=== PATIENT | male | born 1990 | race Caucasian/White ===

== ENCOUNTER 2017-10-17 20:37 | Emergency (ER) | payer OTHER ==
[2017-10-17 21:23] LABS: Hematocrit 50 % (42-52); Hemoglobin 17.2 g/dl (14.0-18.0); Mean Corpuscular HGB Conc 34 g/dl (31-36); Mean Corpuscular Hemoglobin 33 pg (27-31); Mean Corpuscular Volume 96 fL (80-94); Mean Platelet Volume 9 um3 (7.4-10.4); Red Blood Count 5.21 10^6/ul (4.0-5.4); Red Cell Distribution Width 13 % (10.5-15); White Blood Count 10.3 10^3/ul (3.5-10.8)
[2017-10-17 21:37] LABS: ALT 16 U/L (7-52); AST 14 U/L (13-39); Albumin 4.7 g/dL (3.2-5.2); Alkaline Phosphatase 56 U/L (34-104); Anion Gap 5 mmol/L (2-11); BUN/Creatinine Ratio 9.1 (8-20); Blood Urea Nitrogen 11 mg/dL (6-24); CO2 Carbon Dioxide 31 mmol/L (22-32); Chloride 101 mmol/L (101-111); EGFR African American 92.5 (>60); EGFR Non-African American 71.9 (>60); Globulin 2.8 g/dL (2-4); Glucose 110 mg/dL (70-100); Potassium 3.9 mmol/L (3.5-5.0); Sodium 137 mmol/L (133-145); Total Protein 7.5 g/dL (6.4-8.9)
[2017-10-17] MEDS ORDERED: Tetan/Diph/Pertus SYR(Tdap)* 0.5 ML SYR(BOOSTRIX) use SYR IM ONE (21:52)
[2017-10-17 21:59] LABS: Acetaminophen < 15 mcg/mL; Alcohol < 10 mg/dL (<10); Salicylate < 2.50 mg/dL (<30)
[2017-10-17] MEDS ORDERED: Iohexol 300* (CONTRAST) 10 ML SDV IV ONE (22:04)
[2017-10-17 22:13] LABS: TSH (Thyroid Stimulating Horm) 1.79 mcIU/mL (0.34-5.60)
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
[2017-10-18 02:03] LABS: Urine Bacteria Absent (Absent); Urine Bilirubin Negative (Negative); Urine Glucose Negative (Negative); Urine Nitrite Negative (Negative)
[2017-10-18 02:13] LABS: Benzodiazepine Urine Screen None Detected (None Detect)
--- NOTE | 2017-10-18 06:48 | ED ---
Nico Poole Tiffany, scribed for Tonio Hightower on 10/18/17 at 0646 . Progress - Consult/PCP Time Called: 02:23 Course/Dx - Course Course Of Treatment: Patient signed out to Dr. Fernando at shift change, awaiting mental health evaluation. - Diagnoses Provider Diagnoses: Depression, Suicidal ideation - Provider Notifications Reason For Transfer: No beds available. The documentation as recorded by the Nico hannah Tiffany accurately reflects the service I personally performed and the decisions made by Katja wise Emmanuel.
[2017-10-18 07:30] VITALS: BP 121/65
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
--- NOTE | 2017-10-18 12:54 | PN ---
ED Flex Patient Progress Note Date of Service: 10/17/17 Subjective: This is a 27 year-old M who is pending psych eval by Dr Pugh. Psych attempted to discharge after eval however Dr Hightower did not agree and wanted Dr Pugh to evaluate him himself. Patient is waiting for this evaluation upon my arrival. Pt offers no complaints at this time. Sleeping and eating fine. Objective: Vitals: Most recent vital signs documented below. General NAD, Alert and oriented x3. Heart: rrr at 53 bpm Lungs: CTA or with rales, rhonchi, wheezing Laboratory: Current laboratory results documented below. Assessment: suicidal ideation depression pending psych eval by Dr Pugh Plan: Pending psychiatric consultation by Dr Pugh. will follow up daily until disposition is determined Vital Signs Temp Pulse Resp BP Pulse Ox 97.7 F 53 16 121/65 99 10/18/17 07:29 10/18/17 07:29 10/18/17 07:29 10/18/17 07:29 10/18/17 07:29 Lab Results - Entire Visit 10/18/17 10/18/17 10/17/17 01:43 01:43 21:10 WBC 10.3 RBC 5.21 Hgb 17.2 Hct 50 MCV 96 H MCH 33 H MCHC 34 RDW 13 Plt Count 224 MPV 9 Neut % (Auto) 61.8 Lymph % (Auto) 29.2 Whitley % (Auto) 7.3 Eos % (Auto) 0.9 Baso % (Auto) 0.8 Absolute Neuts (auto) 6.4 Absolute Lymphs (auto) 3.0 Absolute Monos (auto) 0.8 Absolute Eos (auto) 0.1 Absolute Basos (auto) 0.1 Absolute Nucleated RBC 0.01 Nucleated RBC % 0.1 Sodium Potassium Chloride Carbon Dioxide Anion Gap BUN Creatinine Est GFR ( Amer) Est GFR (Non-Af Amer) BUN/Creatinine Ratio Glucose Calcium Total Bilirubin AST ALT Alkaline Phosphatase Total Protein Albumin Globulin Albumin/Globulin Ratio TSH Urine Color Yellow Urine Appearance Clear Urine pH 6.0 Ur Specific [place] 1.013 Urine Protein Negative Urine Ketones Trace H Urine Blood Negative Urine Nitrate Negative Urine Bilirubin Negative Urine Urobilinogen Positive H Ur Leukocyte Esterase Trace H Urine WBC (Auto) 1+(6-10/hpf) H Urine RBC (Auto) Trace(0-2/hpf) Ur Squamous Epith Cells Present H Urine Bacteria Absent Urine Glucose Negative Salicylates Urine Opiates Screen None detected Acetaminophen Ur Barbiturates Screen None detected Ur Phencyclidine Scrn None detected Ur Amphetamines Screen None detected U Benzodiazepines Scrn None detected Urine Cocaine Screen Presumptive positive H U Cannabinoids Screen Presumptive positive H Serum Alcohol 10/17/17 21:10 WBC RBC Hgb Hct MCV MCH MCHC RDW Plt Count MPV Neut % (Auto) Lymph % (Auto) Whitley % (Auto) Eos % (Auto) Baso % (Auto) Absolute Neuts (auto) Absolute Lymphs (auto) Absolute Monos (auto) Absolute Eos (auto) Absolute Basos (auto) Absolute Nucleated RBC Nucleated RBC % Sodium 137 Potassium 3.9 Chloride 101 Carbon Dioxide 31 Anion Gap 5 BUN 11 Creatinine 1.21 H Est GFR ( Amer) 92.5 Est GFR (Non-Af Amer) 71.9 BUN/Creatinine Ratio 9.1 Glucose 110 H Calcium 10.0 Total Bilirubin 0.80 AST 14 ALT 16 Alkaline Phosphatase 56 Total Protein 7.5 Albumin 4.7 Globulin 2.8 Albumin/Globulin Ratio 1.7 TSH 1.79 Urine Color Urine Appearance Urine pH Ur Specific [place] Urine Protein Urine Ketones Urine Blood Urine Nitrate Urine Bilirubin Urine Urobilinogen Ur Leukocyte Esterase Urine WBC (Auto) Urine RBC (Auto) Ur Squamous Epith Cells Urine Bacteria Urine Glucose Salicylates < 2.50 Urine Opiates Screen Acetaminophen < 15 Ur Barbiturates Screen Ur Phencyclidine Scrn Ur Amphetamines Screen U Benzodiazepines Scrn Urine Cocaine Screen U Cannabinoids Screen Serum Alcohol < 10
--- NOTE | 2017-10-18 14:03 | PN ---
Progress Note - Progress Note Date of Service: 10/18/17 Note: Patient seen and mother, Amanda López ([phone]), spoken to for collateral information. Patient is denying SI and would like to go to [facility] for emergency housing services. Please see dictated consultation report for full history.
--- NOTE | 2017-10-18 14:39 | CONSULT ---
Consult Consult: Mr. Mclain presented on a previous shift C/O SI. He was medically cleared and seen by Dr. Pugh who felt that he was appropriate for D/C although he was offered a voluntary admission which he declined. He was D/C'd in stable condition with a diagnosis of suicidal ideation.
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
== END 2017-10-18 14:32 ==
LOC: ED 20:37
DX: T14.8XXA Other injury of unspecified body region, initial encounter (principal); S42.032A Displaced fracture of lateral end of left clavicle, initial encounter for closed fracture; Y93.89 Activity, other specified; Y92.9 Unspecified place or not applicable; F12.20 Cannabis dependence, uncomplicated; F32.9 Major depressive disorder, single episode, unspecified; F17.210 Nicotine dependence, cigarettes, uncomplicated
CPT/HCPCS: 36415; 70450; 71250; 72125; 74176; 80053; 80307; 80320; 80329; 81003; 81015; 84443; 85025; 87086; 90471; 90715; 96374; 99284; G0480

== ENCOUNTER 2017-11-02 00:47 | Emergency (ER) | payer OTHER ==
[2017-11-02] MEDS ORDERED: NS 0.9% 1000 ML* 2,000 ML IV ONE (00:55)
[2017-11-02] MEDS ORDERED: LORazepam INJ* 2 MG/ML 1 ML VIAL IV PUSH ONE (01:04)
[2017-11-02 01:18] LABS: ABS Basophils 0.1 10^3/ul (0-0.2); ABS Eosinophils 0.1 10^3/ul (0-0.6); ABS Lymphocytes 3.3 10^3/ul (1.0-4.8); ABS Monocytes 0.7 10^3/ul (0-0.8); ABS Neutrophils 8.3 10^3/ul (1.5-7.7); ABS Nucleated RBC 0 10^3/ul; Eosinophil % 1.1 % (0-6); Hematocrit 46 % (42-52); Hemoglobin 15.3 g/dl (14.0-18.0); Lymphocyte % 26.3 % (25-47); Mean Corpuscular HGB Conc 34 g/dl (31-36); Mean Corpuscular Hemoglobin 33 pg (27-31); Mean Corpuscular Volume 97 fL (80-94); Mean Platelet Volume 9 um3 (7.4-10.4); Nucleated Red Blood Cells % 0; Platelet Count 198 10^3/ul (150-450); Red Blood Count 4.72 10^6/ul (4.0-5.4); Red Cell Distribution Width 13 % (10.5-15); White Blood Count 12.4 10^3/ul (3.5-10.8)
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
[2017-11-02 09:32] VITALS: BP 00/00
== END 2017-11-02 09:30 ==
LOC: ED 00:47
DX: F10.129 Alcohol abuse with intoxication, unspecified (principal); F17.210 Nicotine dependence, cigarettes, uncomplicated
CPT/HCPCS: 36415; 80053; 80320; 80329; 82553; 84443; 85025; 96374; 99282; G0480; J2060

== ENCOUNTER 2018-05-15 18:47 | Emergency (ER) | payer SELFPAY ==
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
[2018-05-15 20:33] VITALS: BP 128/74
== END 2018-05-15 20:31 | disposition home or self-care (01) ==
LOC: ED 18:47
DX: F43.0 Acute stress reaction (principal); F98.9 Unspecified behavioral and emotional disorders with onset usually occurring in childhood and adolescence; F10.129 Alcohol abuse with intoxication, unspecified; F17.200 Nicotine dependence, unspecified, uncomplicated
CPT/HCPCS: 99283

== ENCOUNTER → 2019-05-22 18:13 | Emergency (ER) | payer OTHER ==
[2019-05-22 18:25] VITALS: BP 108/59
--- NOTE | 2019-05-22 18:44 | ED ---
Altered Mental Status - HPI Summary HPI Summary: The patient is a 29 y/o M arriving by ambulance as 2208 to [facility] with a chief complaint of AMS today. Per EMS, the patient was found outside of a store unresponsive and slumped over with drool coming out of his mouth. When prompted by EMS, the patient threw a heavy swing and fell into the bushes. He was unable to answer president and date questions at the time. In the ED, the patient is responsive, awake, and denies SI or HI. He states he "told a freeman off at the store who told him he was on something." He reports feeling safe enough to go home. He is currently on probation. No PMHx. Light every day smoker, no EtOH, marijuana use. Lives in [facility]. - History Of Current Complaint Chief Complaint: EDAltMentalStatus Stated Complaint: 2208 PER EMS Time Seen by Provider: 05/22/19 18:16 Hx Obtained From: Patient, EMS Hx From Patient Unobtainable Due To: Other Onset/Duration: Resolved Timing: Lasting Hours Severity Initially: Severe Severity Currently: Mild Character: Agitation, Responsiveness Aggravating Factor(s): Unknown Alleviating Factor(s): Unknown - Allergies/Home Medications Allergies/Adverse Reactions: Allergies Allergy/AdvReac Type Severity Reaction Status Date / Time No Known Allergies Allergy Verified 01/18/15 20:22 PMH/Surg Hx/FS Hx/Imm Hx Endocrine/Hematology History: Denies: Hx Anticoagulant Therapy, Hx Blood Disorders, Hx Diabetes, Hx Thyroid Disease, Hx Anemia Sensory History: Denies: Hx Legally Blind, Hx Deafness Opthamlomology History: Denies: Hx Legally Blind Psychiatric History: Denies: Hx Eating Disorder - Surgical History Surgical History: None Surgery Procedure, Year, and Place: none - Immunization History Date of Tetanus Vaccine: unk Date of Influenza Vaccine: unk Immunizations Up to Date: Yes Infectious Disease History: Yes Infectious Disease History: Reports: Traveled Outside the [place] in Last 30 Days - [place] - Family History Known Family History: Negative: Hypertension, Diabetes - Social History Alcohol Use: None Substance Use Type: Reports: Marijuana Substance Use Comment - Amount & Last Used: not for past couple of day Hx Tobacco Use: Yes - denies smoking tobacco today Smoking Status (MU): Light Every Day Tobacco Smoker Review of Systems Neurological: Other - AMS with unresponsiveness (per EMS) Psychological: Other - NEGATIVE: SI, HI All Other Systems Reviewed And Are Negative: Yes Physical Exam - Summary Physical Exam Summary: Appearance: Well appearing, no pain distress Skin: warm, dry, reflects adequate perfusion Head/face: normal Eyes: EOMI, YOLANDA ENT: normal Neck: supple, non-tender Respiratory: CTA, breath sounds present Cardiovascular: RRR, pulses symmetrical Abdomen: non-tender, soft Musculoskeletal: normal, strength/ROM intact Neuro: normal, sensory motor intact, A&Ox3 Triage Information Reviewed: Yes Vital Signs On Initial Exam: Initial Vitals Temp Pulse Resp BP Pulse Ox 97.9 F 81 17 108/59 95 05/22/19 18:19 05/22/19 18:19 05/22/19 18:19 05/22/19 18:19 05/22/19 18:19 Vital Signs Reviewed: Yes Diagnostics - Vital Signs Vital Signs Temp Pulse Resp BP Pulse Ox 05/22/19 18:19 97.9 F 81 17 108/59 95 - Laboratory Lab Statement: Any lab studies that have been ordered have been reviewed, and results considered in the medical decision making process. Re-Evaluation - Re-Evaluation First Eval Re-Evaluation Time: 18:45 Comment: We discussed discharge plan since patient would like to go home. Altered Mental Statu Course/Dx - Course Course Of Treatment: The patient is a 29 y/o M arriving by ambulance as 2208 to [facility] with a chief complaint of AMS today as he was found unresponsive and slumped over with drool coming out of his mouth. In the ED, the patient is responsive, awake, and denies SI or HI. Upon physical exam, the patient exhibits no acute abnormalities. The patient refuses workup and does not want anything done. He feels okay now. He states he has somewhere to go. He is diagnosed with medical screening exam. He is discharged back to the [place] [facility], and he agrees with this plan. - Diagnoses Differential Diagnosis/HQI/PQRI: Other - medical screening exam Provider Diagnoses: Encounter for medical screening examination Discharge - Sign-Out/Discharge Documenting (check all that apply): Patient Departure - Patient will be discharged home. Patient Received Moderate/Deep Sedation with Procedure: No - Discharge Plan Condition: Stable Disposition: HOME Patient Education Materials: Normal Exam (ED) Referrals: [facility] [Outside] - 3 Days Additional Instructions: Follow up with your primary care provider in 2-3 days. RETURN TO THE EMERGENCY DEPARTMENT FOR ANY NEW OR WORSENING SYMPTOMS. - Billing Disposition and Condition Condition: STABLE Disposition: Home - Attestation Statements Document Initiated by Luzmaria: Yes Documenting Scribe: Shelby Ward Provider For Whom Luzmaria is Documenting (Include Credential): Dr. Tonio Hightower MD Scribe Attestation: IShelby scribed for Dr. Tonio Hightower MD on 05/22/19 at 2026. Scribe Documentation Reviewed: Yes Provider Attestation: The documentation as recorded by the Shelby hannah accurately reflects the service I personally performed and the decisions made by me, Dr. Tonio Hightower MD Status of Scribe Document: Viewed
== END | disposition home or self-care (01) ==
LOC: ED 18:13
DX: R41.82 Altered mental status, unspecified (principal); F17.200 Nicotine dependence, unspecified, uncomplicated
CPT/HCPCS: 99282

== ENCOUNTER 2019-09-29 00:29 | Emergency (ER) | payer OTHER ==
[2019-09-29 03:00] LABS: ABS Eosinophils 0.1 10^3/ul (0-0.6); ABS Lymphocytes 3.3 10^3/ul (1.0-4.8); ABS Monocytes 0.7 10^3/ul (0-0.8); ABS Neutrophils 5.3 10^3/ul (1.5-7.7); Eosinophil % 1.3 %; Hematocrit 51 % (42-52); Hemoglobin 17.3 g/dL (14.0-18.0); Lymphocyte % 34.4 %; Mean Corpuscular HGB Conc 34 g/dL (31-36); Mean Corpuscular Hemoglobin 32 pg (27-31); Mean Corpuscular Volume 95 fL (80-94); Mean Platelet Volume 9.9 fL (7.4-10.4); Nucleated Red Blood Cells % 0.1; Platelet Count 203 10^3/uL (150-450); Red Blood Count 5.37 10^6 /uL (4.18-5.48); Red Cell Distribution Width 14 % (10-15); White Blood Count 9.4 10^3/uL (3.5-10.8)
--- NOTE | 2019-09-29 03:03 | ED ---
Skin Complaint - HPI Summary HPI Summary: Patient is a 29 y/o M presenting to [facility] with complaints of swelling and redness to 2nd toes of both feet. Sx onset a week ago and have progressively worsened since onset. No other areas noted. Sites are painful. On triage, pain is rated 7/10, nothing is noted to aggravate/alleviate Sx. Patient has been treating sites with Bacitracin with no relief in Sx. He denies fever, N/V but endorses some diarrhea. PMHx is denied. He is a current smoker, notes occasional alcohol usage, denies substance usage. Patient has been wearing the same, old pair of shoes. He denies allergies. PSHx is denied. FMHx of diabetes endorsed. He has been told in the past that he is hypoglycemic. Home medications and allergies noted. Patient refuses IV access. - History of Current Complaint Chief Complaint: EDExtremityLower Stated Complaint: ABRASIONS ON TOE PER EMS Hx Obtained From: Patient Onset/Duration: Started Weeks Ago, Still Present, Worse Since Skin Exposure Onset/Duration: Weeks Ago, Worse Since: Timing: Constant, Lasting Weeks Current Severity: Severe Pain Intensity: 7 Pain Scale Used: 0-10 Numeric Skin Location: Foot - 2nd toes of both feet Character: Swelling, Pain, Redness, Painful Aggravating Symptom(s): Nothing Alleviating Symptom(s): Nothing Associated Signs & Symptoms: Negative - Allergy/Home Medications Allergies/Adverse Reactions: Allergies Allergy/AdvReac Type Severity Reaction Status Date / Time No Known Allergies Allergy Verified 09/29/19 00:33 PMH/Surg Hx/FS Hx/Imm Hx Endocrine/Hematology History: Denies: Hx Anticoagulant Therapy, Hx Blood Disorders, Hx Diabetes, Hx Thyroid Disease, Hx Anemia Sensory History: Denies: Hx Legally Blind, Hx Deafness Opthamlomology History: Denies: Hx Legally Blind Psychiatric History: Denies: Hx Eating Disorder - Surgical History Surgery Procedure, Year, and Place: none - Immunization History Date of Tetanus Vaccine: unk Date of Influenza Vaccine: unk Infectious Disease History: No Infectious Disease History: Denies: Traveled Outside the [place] in Last 30 Days - Family History Known Family History: Positive: Diabetes Negative: Hypertension - Social History Alcohol Use: None Substance Use Type: Reports: Marijuana Substance Use Comment - Amount & Last Used: not for past couple of day Hx Tobacco Use: Yes - denies smoking tobacco today Smoking Status (MU): Light Every Day Tobacco Smoker Review of Systems Negative: Fever Negative: Vomiting, Nausea Positive: Edema - 2nd toes of both feet Skin: Other - redness, pain of 2nd toes of both feet All Other Systems Reviewed And Are Negative: Yes Physical Exam - Summary Physical Exam Summary: General: Well-developed, Overweight male. No acute distress. Unkempt in appearance. HEENT: Normocephalic, Atraumatic. Eyes: Conjuctiva normal, PERRL. Ears: TMs within normal limits. Nares: (-) discharge, (-) erythema. Oropharynx: Clear, mucous membranes moist, (-) exudates. Poor dentition. Neck: Soft, FROM, (-) lymphadenopathy, (-) thyromegaly, (-) JVD. Cardiovascular: Normal sinus rhythm, (-) murmur. Lungs: Clear to auscultation bilaterally (-) wheezes, (-) rales, (-) rhonchi. Abdomen: Soft, non-tender, non-distended, (-) organomegaly, normal bowel sounds. Back: (-) CVA tenderness Extremities: Significant edema to 2nd toes of both feet Skin: There is significant redness and open wounds to 2nd toes of both feet. No obvious drainage noted. Areas are warm. Good cap refill and normal pulses. Neuro: Alert and oriented x3, no focal deficits. Psychiatric: Mood normal, affect normal. Triage Information Reviewed: Yes Vital Signs On Initial Exam: Initial Vitals Temp Pulse Resp BP Pulse Ox 97.4 F 82 15 107/71 97 09/29/19 00:31 09/29/19 00:31 09/29/19 00:31 09/29/19 00:31 09/29/19 00:31 Vital Signs Reviewed: Yes Procedures - Sedation Patient Received Moderate/Deep Sedation with Procedure: No Diagnostics - Vital Signs Vital Signs Temp Pulse Resp BP Pulse Ox 09/29/19 00:31 97.4 F 82 15 107/71 97 - Laboratory Result Diagrams: 09/29/19 02:36 09/29/19 02:36 Lab Statement: Any lab studies that have been ordered have been reviewed, and results considered in the medical decision making process. Course/Dx - Course Course Of Treatment: 29 luisa old male presents with red areas on bilateral second toes. denies any known injury. states he has not changed footwear. lesions present for one week, getting worse. no f/c/n/v. toes are erythematous, swollen, warm, wiht open areas. workup demonstrated normal wbc and lactic acid. patient refused iv for iv antibiotics. patient rstarted on 875 mg PO Augmentin. follow up with PCP. follow up sooner for any worsening symptoms. - Diagnoses Provider Diagnoses: Cellulitis of both feet Discharge ED - Sign-Out/Discharge Documenting (check all that apply): Patient Departure - discharge - Discharge Plan Condition: Stable Disposition: HOME Prescriptions: Amoxicillin/Clavulanate TAB* [Augmentin TAB 875*] 875 mg PO BID #20 tab Patient Education Materials: Cellulitis (ED) Referrals: [facility] [Outside] - 3 Days Additional Instructions: Please follow up with your primary care physician within three days. Please return to ED for any new or worsening symptoms. - Billing Disposition and Condition Condition: STABLE Disposition: Home - Attestation Statements Document Initiated by Luzmaria: Yes Documenting Scribe: JENNIFER MULLEN Provider For Whom Luzmaria is Documenting (Include Credential): STEPHANIE MONZON MD Scribe Attestation: IJENNIFER, scribed for STEPHANIE MONZON MD on 09/29/19 at 0439. Scribe Documentation Reviewed: Yes Provider Attestation: The documentation as recorded by the JENNIFER hannah accurately reflects the service I personally performed and the decisions made by me, STEPHANIE MONZON MD Status of Scribe Document: Viewed
[2019-09-29 03:24] LABS: Albumin 4.7 g/dL (3.2-5.2); Albumin/Globulin Ratio 1.9 (1-3); BUN/Creatinine Ratio 10.9 (8-20); Calcium 9.7 mg/dL (8.6-10.3); EGFR African American 74.3 (>60); EGFR Non-African American 61.4 (>60); Globulin 2.5 g/dL (2-4); Potassium 4.1 mmol/L (3.5-5.0); Total Bilirubin 0.6 mg/dL (0.2-1.0); Total Protein 7.2 g/dL (6.4-8.9)
[2019-09-29] MEDS ORDERED: Amoxicillin/Clavulanate TAB* 875 MG PO ONE (04:05)
[2019-09-29 04:08] LABS: Urine Appearance Cloudy; Urine Bilirubin Negative (Negative); Urine Blood Negative (Negative); Urine Color Yellow; Urine Glucose Negative (Negative); Urine Ketones Trace (Negative); Urine Nitrite Negative (Negative); Urine Protein Negative (Negative); Urine Specific Gravity 1.028 (1.010-1.030); Urine Urobilinogen Negative (Negative)
[2019-09-29 04:19] LABS: Urine Benzodiazepine Screen None Detected (None Detect); Urine Opiates Screen None Detected (None Detect)
[2019-09-29 05:03] VITALS: BP 135/78
== END 2019-09-29 04:20 | disposition home or self-care (01) ==
LOC: ED 00:29
DX: L03.116 Cellulitis of left lower limb (principal); L03.115 Cellulitis of right lower limb; F17.200 Nicotine dependence, unspecified, uncomplicated
CPT/HCPCS: 36415; 80053; 80307; 80320; 81003; 83605; 85025; 87040; 99283; A9270-GY; G0480

== ENCOUNTER 2019-11-19 23:57 | Emergency (ER) | payer OTHER ==
--- NOTE | 2019-11-20 00:09 | ED ---
HPI Chest Pain - HPI Summary HPI Summary: Patient is a 29 y/o M presenting to the ED via EMS for a chief complaint of intermittent right anterior chest pain for the last few days. The chest pain lasts for a few hours before resolving. He also notes shortness of breath and fuzzy white in his vision. Patient denies dizziness or lightheadedness. Patient reports positive sick contact with his roommates. Patient admits marijuana use. Any significant PMHx or PSHx is denied. He had blood work performed on 11/19/19 at [facility] for his chest pain. - History of Current Complaint Time Seen by Provider: 11/20/19 00:00 Hx Obtained From: Patient Onset/Duration: Atraumatic, Still Present Timing: Intermittent, Lasting Hours Initial Severity: Moderate Current Severity: Moderate Pain Scale Used: 0-10 Numeric Chest Pain Location: Right Anterior Chest Pain Radiates: No Aggravating Factor(s): Nothing Alleviating Factor(s): Spontaneous Resolution Associated Signs and Symptoms: Positive: Chest Pain, Shortness of Breath. Negative: Dizziness, Lightheadedness - Allergy/Home Medications Allergies/Adverse Reactions: Allergies Allergy/AdvReac Type Severity Reaction Status Date / Time No Known Allergies Allergy Verified 11/20/19 00:41 PMH/Surg Hx/FS Hx/Imm Hx Previously Healthy: Yes Endocrine/Hematology History: Denies: Hx Anticoagulant Therapy, Hx Blood Disorders, Hx Diabetes, Hx Thyroid Disease, Hx Anemia Sensory History: Denies: Hx Legally Blind, Hx Deafness Opthamlomology History: Denies: Hx Legally Blind EENT History: Denies: Hx Deafness Psychiatric History: Denies: Hx Eating Disorder - Surgical History Surgical History: None Surgery Procedure, Year, and Place: none - Immunization History Date of Tetanus Vaccine: unk Date of Influenza Vaccine: unk Infectious Disease History: No - Family History Known Family History: Positive: Diabetes Negative: Hypertension - Social History Occupation: Unemployed Lives: Dormitory/Roommates Alcohol Use: None Hx Substance Use: Yes Substance Use Type: Reports: Marijuana Substance Use Comment - Amount & Last Used: not for past couple of day Hx Tobacco Use: Yes - denies smoking tobacco today Smoking Status (MU): Light Every Day Tobacco Smoker Review of Systems Positive: Other - Positive vision changes Positive: Chest Pain - Right anterior Positive: Shortness Of Breath Neurological: Other - Negative dizziness or lightheadedness All Other Systems Reviewed And Are Negative: Yes Physical Exam - Summary Physical Exam Summary: Appearance: Well-appearing, Well-nourished, lying in bed comfortably Skin: Warm, dry, no obvious rash Eyes: sclera anicteric, no conjunctival pallor ENT: mucous membranes moist, pharynx appears normal Neck: Supple, nontender Respiratory: Clear to auscultation, no signs of respiratory distress Cardiovascular: Normal S1, S2. No murmurs. Normal distal pulses in tibial and radial bilaterally. Abdomen: Soft, nontender, normal active bowel sounds present Musculoskeletal: Normal, Strength/ROM Intact Neurological: A&Ox3, awake and alert, mentation is normal, speech is fluent and appropriate Psychiatric: affect is normal, does not appear anxious or depressed Triage Information Reviewed: Yes Vital Signs Reviewed: Yes Procedures - Sedation Patient Received Moderate/Deep Sedation with Procedure: No Diagnostics - Laboratory Lab Statement: Any lab studies that have been ordered have been reviewed, and results considered in the medical decision making process. - Radiology Chest X-ray Radiology Interpretation Completed By: Radiologist Summary of Radiographic Findings: Chest X-ray IMPRESSION: no acute process. Reviewed and interpreted by Dr. Mota, pending official radiology report. - EKG 23:58 Cardiac Rate: NL - 82 BPM EKG Rhythm: Sinus Rhythm ST Segment: Normal Ectopy: None Summary of EKG Findings: EKG at 23:58 shows NSR at 82 BPM, P waves, QRS complex , and T waves are within normal limits, T waves and intervals are normal, no ischemic changes, no STEMI. This is a normal EKG. Reviewed and interpreted by Dr. Mota. Chest Pain Course/Dx - Course Course Of Treatment: Patient is a 29 y/o M presenting to the ED via EMS for a chief complaint of intermittent right anterior chest pain for the last few days. The chest pain lasts for a few hours before resolving. He also notes shortness of breath and fuzzy white in his vision. Patient denies dizziness or lightheadedness. Patient reports positive sick contact with his roommates. Patient admits marijuana use. Any significant PMHx or PSHx is denied. He had blood work performed on 11/19/19 at [facility] for his chest pain. On exam, unremarkable findings. In the ED course, patient was given Maalox 30 ml PO, Pepcid 20 mg PO, and Lidocaine 2% 15 ml PO. EKG at 23:58 shows NSR at 82 BPM, P waves, QRS complex, and T waves are within normal limits, T waves and intervals are normal, no ischemic changes, no STEMI. This is a normal EKG. Chest X-ray IMPRESSION: no acute process. Patient will be discharged with a diagnosis of chest pain. Follow up with PCP as needed. - Diagnoses Provider Diagnoses: Chest pain Discharge ED - Sign-Out/Discharge Documenting (check all that apply): Patient Departure - Discharge - Discharge Plan Condition: Good Disposition: HOME Prescriptions: Famotidine TAB* [Pepcid 20 MG TAB*] 20 mg PO BID #30 tab Patient Education Materials: Chest Pain (ED) Referrals: Comfort Mclain MD [Primary Care Provider] - Additional Instructions: The tests we ran tonight ruled out any problem with the heart, despite the pain you are having it is not from a heart condition. Many other things can cause chest pain in young people. One of the common things has to do with problems in the esophagus, so I think it is reasonable to try you on medication to treat that. - Billing Disposition and Condition Condition: GOOD Disposition: Home - Attestation Statements Document Initiated by Farrahibrachele: Yes Documenting Scribe: Jaclyn Chavez Provider For Whom Luzmaria is Documenting (Include Credential): Ata Mota MD Scribe Attestation: IJaclyn, scribed for Ata Mota MD on 11/20/19 at 0519. Scribe Documentation Reviewed: Yes Provider Attestation: The documentation as recorded by the Jaclyn hannah accurately reflects the service I personally performed and the decisions made by me, Ata Mota MD Status of Scribe Document: Viewed
--- OUTSIDE RECORDS SUMMARY | 2019-11-20 00:57 | XMS REPORT | Continuity of Care Document ---
:1990 External Reference #:[id number] Author Name Comfort Mclain MD (transmitted by agent of provider Carmen Vasquez) Address [address] , [place] [address] Care Team Providers Name Role Phone Comfort Mclain MD - Internal Care Team Information Project Buyer [phone] Medicine Problems Description No Information Available Social History Type Date Description Comments Sex Unknown Tobacco Use Start: Unknown Patient is a current smoker, smokes every day Smoking Status Reviewed: 11/19/19 Patient is a current smoker, smokes every day Allergies, Adverse Reactions, Alerts Description No Known Drug Allergies Medications Description No Active Medications Immunizations Description No Information Available Vital Signs Date Vital Result Comment 11/19/2019 1:06pm Height 74 inches 6'2" Weight 213.00 lb Heart Rate 83 /min BP Systolic Sitting 130 mmHg BP Diastolic Sitting 85 mmHg Body Temperature 98.4 F O2 % BldC Oximetry 99 % BMI (Body Mass Index) 27.3 kg/m2 Results Description No Information Available Procedures Description No Information Available Medical Devices Description No Information Available Encounters Description No Information Available Assessments Date Code Description Provider 11/19/2019 L03.039 Cellulitis of unspecified toe Comfort Mclain MD 11/19/2019 Z11.3 Encounter for screening for infections with a Comfort Mclain MD predominantly sexual mode of transmission Plan of Treatment 11/19/2019 - Comfort Mclain MDL03.039 Cellulitis of unspecified toeNew Labs: CBC No Diff, Ordered: 11/19/19Basic Metabolic Panel, Ordered: 11/19/19Z11.3 Encounter for screening for infections with a predominantly sexual mode of transmissionNew Labs:HIV 1&2 p24 Screen, Ordered: 11/19/19yphillis Igg W/ Reflex RPR, Ordered: 11/19/19GC/Chlamydia Amplified Rna, Ordered: Hepatitis C Antibody, Ordered: 11/19/19 Functional Status Description No Information Available Mental Status Description No Information Available Referrals Description No Information Available
[2019-11-20 01:28] LABS: HIV 4th Generation Nonreactive (Nonreactive)
[2019-11-20] MEDS ORDERED: Famotidine TAB* 20 MG PO ONE (01:49)
[2019-11-20] MEDS ORDERED: Lidocaine 2% VISCOUS* 15 ML UDC PO ONE (01:49)
[2019-11-20] MEDS ORDERED: Al Hydrox/Mg Hydrox/Simet LIQ* 30 ML UDC PO ONE (01:49)
[2019-11-20 04:29] VITALS: BP 121/72
== END 2019-11-20 04:28 | disposition home or self-care (01) ==
LOC: ED 23:57
DX: R07.9 Chest pain, unspecified (principal); F17.200 Nicotine dependence, unspecified, uncomplicated
CPT/HCPCS: 36415; 71046; 84484; 85379; 87389; 99282; A9270-GY

== ENCOUNTER 2019-11-28 21:17 | Emergency (ER) | payer OTHER ==
--- OUTSIDE RECORDS SUMMARY | 2019-11-28 21:30 | XMS REPORT | Continuity of Care Document ---
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 Problems Description No Information Available Social History Type Date Description Comments Sex Unknown Tobacco Use Start: Unknown Patient is a current smoker, smokes every day Smoking Status Reviewed: 11/26/19 Patient is a current smoker, smokes every day Allergies, Adverse Reactions, Alerts Description No Known Drug Allergies Medications Description No Active Medications Immunizations Description No Information Available Vital Signs Date Vital Result Comment 11/26/2019 11:12am Height 74 inches 6'2" Weight 220.00 lb Heart Rate 86 /min BP Systolic Sitting 115 mmHg BP Diastolic Sitting 73 mmHg O2 % BldC Oximetry 99 % BMI (Body Mass Index) 28.2 kg/m2 11/19/2019 1:06pm Height 74 inches 6'2" Weight 213.00 lb Heart Rate 83 /min BP Systolic Sitting 130 mmHg BP Diastolic Sitting 85 mmHg Body Temperature 98.4 F O2 % BldC Oximetry 99 % BMI (Body Mass Index) 27.3 kg/m2 Results Test Acquired Facility Test Result H/L Range Note Date Laboratory 11/20/2019 [facility] D Dimer < 200 Normal Less Than 1 test finding [address] Quantitative ng/mL [address] [place] [address] [phone] Troponin-I (TnI) 0.00 ng/mL <0.03 2 CBC No Diff 11/19/2019 [facility] White Blood 11.9 10^3/uL High 3.5-10.[address] [place] [address] [phone] Red Blood Count 5.41 10^6/uL Normal 4.18-5.48 Hemoglobin 17.7 g/dL Normal 14.0-18.0 Hematocrit 51 % Normal 42-52 Mean Corpuscular Volume 95 fL High 80-94 Mean Corpuscular Hemoglobin 33 pg High 27-31 Mean Corpuscular HGB Conc 35 g/dL Normal 31-36 Red Cell Distribution Width 13 % Normal 10-15 Platelet Count 196 10^3/uL Normal 150-450 Mean Platelet Volume 10.7 fL High 7.4-10.4 Basic Metabolic 11/19/2019 [facility] Sodium 140 mmol/L Normal 135-[address] [place] [address] [phone] Potassium 4.2 mmol/L Normal 3.5-5.0 Chloride 102 mmol/L Normal 101-111 Co2 Carbon Dioxide 27 mmol/L Normal 22-32 Anion Gap 11 mmol/L Normal 2-11 Glucose 81 mg/dL Normal 70-100 Blood Urea Nitrogen 19 mg/dL Normal 6-24 Creatinine 1.34 mg/dL High 0.67-1.17 BUN/Creatinine Ratio 14.2 Normal 8-20 Calcium 10.2 mg/dL Normal 8.6-10.3 Egfr Non- 63.0 >60 Egfr 76.3 >60 3 HIV 1&2 p24 11/19/2019 [facility] HIV 4th Nonreactive Nonreactive Screen [facility] [employer] [facility] [place] [address] [phone] Laboratory 11/19/2019 [facility] Syphillis Igg Negative Negative test finding [address] [place] [address] W/[place] [address] [phone] GC/Chlamydia 11/19/2019 [facility] GCCHL (SEE NOTE) 4 Amplified Rna [address] [place] [address] [place] [address] [phone] Chlamydia trachomatis Nusrat Negative Negative Neisseria gonorrhoeae (GC) Nusrat Negative Negative Hepatitis C Antibody 11/19/2019 [facility] HCV Index 0.01 s/c [facility] [place] [address] [phone] Hepatitis C Antibody Negative Negative 1 Please note: The following may produce a false positive D Dimer test: - Rheumatoid factor greater than 60 IU/ml - Plasma hemoglobin greater than 0.05 gm/dl - Bilirubin greater than 50 mg/dl - Lipids greater than 1000 mg/dl - FDP greater than 20 ug/ml 2 Troponin-I testing on Plasma Separator Tubes (PST) has a known false positive rate of 0.20-0.40%. All positive troponins reflex immediately to secondary confirmatory testing. Using the [employer] 800 Access Immunoassay systems, the 99th percentile upper reference limit was demonstrated to be < 0.03 ng/mL. 3 Because ethnic data is not always readily available, this report includes an eGFR for both -Americans and non- Americans. The National Kidney Disease Education Program (NKDEP) does not endorse the use of the MDRD equation for patients that are not between the ages of 18 and 70, are , have extremes of body size, muscle mass, or nutritional status, or are non- or non-. According to the National Kidney Foundation, irrespective of diagnosis, the stage of the disease is based on the level of kidney function: Stage Description GFR(mL/min/1.73 m(2)) 1 Kidney damage with normal or decreased GFR 90 2 Kidney damage with mild decrease in GFR 60-89 3 Moderate decrease in GFR 30-59 4 Severe decrease in GFR 15-29 5 Kidney failure <15 (or dialysis) 4 As with all diagnostic procedures, the laboratory results obtained should be used in conjunction with other clinical information available to the physician, including confirmation by another method, as applicable. Procedures Description No Information Available Medical Devices Description No Information Available Encounters Description No Information Available Assessments Date Code Description Provider 11/26/2019 Z11.3 Encounter for screening for infections with a Comfort Mclain MD predominantly sexual mode of transmission 11/26/2019 L70.8 Other acne Comfort Mclain MD 11/19/2019 L03.039 Cellulitis of unspecified toe Comfort Mclain MD 11/19/2019 Z11.3 Encounter for screening for infections with a Comfort Mclain MD predominantly sexual mode of transmission Plan of Treatment 11/26/2019 - Comfort Mclain MDZ11.3 Encounter for screening for infections with a predominantly sexual mode of sjfmzktudqtgP57.8 Other acneReferral:Srini Mendez MD, Dermatology Functional Status Description No Information Available Mental Status Description No Information Available Referrals Refer to Reason for Referral Status Appt Date Srini Mendez MD Created [address] [place] [address] [phone]
--- NOTE | 2019-11-28 21:35 | ED ---
Medical Screening - HPI Summary HPI Summary: Patient brought by [employer] to the doors of ER and dropped off. Patient states he believes he has been poisoned with rat poison once a month ago, and again 2 days ago. States symptoms are heavy breathing, racing heart x 2days. History of same symptoms 1 month ago that lasted for 2-3 days and then self resolved. Patient's history rambling, however is alert and oriented and coherent. Denies any other symptoms, pain or injury. Denies SI, HI. Admits to marijuana and EtOH, denies any other recreational drug use. - History of Current Complaint Chief Complaint: EDGeneral Stated Complaint: POSS. POISONING PER PT Time Seen by Provider: 11/28/19 21:34 Onset/Duration: Started Days Ago Severity: mild PMH/Surg Hx/FS Hx/Imm Hx Endocrine/Hematology History: Denies: Hx Anticoagulant Therapy, Hx Blood Disorders, Hx Diabetes, Hx Thyroid Disease, Hx Anemia Cardiovascular History: Denies: Hx Pacemaker/ICD History: Denies: Hx Dialysis Sensory History: Denies: Hx Legally Blind, Hx Deafness Opthamlomology History: Denies: Hx Legally Blind EENT History: Denies: Hx Deafness Neurological History: Denies: Hx Dementia Psychiatric History: Denies: Hx Eating Disorder - Surgical History Surgery Procedure, Year, and Place: none - Immunization History Date of Tetanus Vaccine: unk Date of Influenza Vaccine: unk Infectious Disease History: No Infectious Disease History: Denies: Traveled Outside the [place] in Last 30 Days - Family History Known Family History: Positive: Unknown - Unable to obtain due to EtOH intoxication, Diabetes Negative: Hypertension - Social History Alcohol Use: None Hx Substance Use: Yes Substance Use Type: Reports: Marijuana Substance Use Comment - Amount & Last Used: not for past couple of day Hx Tobacco Use: Yes - denies smoking tobacco today Smoking Status (MU): Light Every Day Tobacco Smoker Review of Systems Constitutional: Negative Eyes: Negative ENT: Negative Positive: Palpitations Respiratory: Other - heavy breathing Gastrointestinal: Negative Genitourinary: Negative Musculoskeletal: Negative Skin: Negative Neurological: Negative Psychological: Normal All Other Systems Reviewed And Are Negative: Yes Physical Exam Triage Information Reviewed: Yes Vital Signs On Initial Exam: Initial Vitals Temp Pulse Resp BP Pulse Ox 98.1 F 114 20 149/91 98 11/28/19 21:20 02/01/20 21:20 11/28/19 21:20 11/28/19 21:20 11/28/19 21:20 Vital Signs Reviewed: Yes Appearance: Positive: Well-Appearing Skin: Positive: Warm Head/Face: Positive: Normal Head/Face Inspection Eyes: Positive: Normal ENT: Positive: Normal ENT inspection Neck: Positive: Supple Respiratory/Lung Sounds: Positive: Clear to Auscultation Cardiovascular: Positive: Normal Abdomen Description: Positive: Nontender Musculoskeletal: Positive: Normal Neurological: Positive: Normal Psychiatric: Positive: Anxious AVPU Assessment: Alert - [place] Coma Scale Best Eye Response: 4 - Spontaneous Best Motor Response: 6 - Obeys Commands Best Verbal Response: 5 - Oriented Coma Scale Total: 15 Procedures - Sedation Patient Received Moderate/Deep Sedation with Procedure: No Diagnostics - Vital Signs Vital Signs Temp Pulse Resp BP Pulse Ox 11/28/19 21:20 98.1 F 114 20 149/91 98 - Laboratory Result Diagrams: 11/28/19 22:36 11/28/19 22:36 Lab Statement: Any lab studies that have been ordered have been reviewed, and results considered in the medical decision making process. Course/Dx - Course Course Of Treatment: Patient brought by [employer] to the doors of ER and dropped off. Patient states he believes he has been poisoned with rat poison once a month ago, and again 2 days ago. States symptoms are heavy breathing, racing heart x 2days. History of same symptoms 1 month ago that lasted for 2-3 days and then self resolved. Patient's history rambling, however is alert and oriented and coherent. Denies any other symptoms, pain or injury. Denies SI, HI. Admits to marijuana and EtOH, denies any other recreational drug use. Vital signs within normal limits. Labs unremarkable. Mental health recommends discharge with diagnosis of substance abuse disorder - Diagnoses Provider Diagnoses: Substance abuse Discharge ED - Sign-Out/Discharge Documenting (check all that apply): Patient Departure - Discharge Plan Condition: Stable Disposition: HOME Patient Education Materials: Cocaine Abuse (ED) Referrals: Comfort Mclain MD [Primary Care Provider] - - Billing Disposition and Condition Condition: STABLE Disposition: Home
[2019-11-28 22:38] LABS: Urine Appearance Clear; Urine Bilirubin Negative (Negative); Urine Blood Negative (Negative); Urine Color Yellow; Urine Glucose Negative (Negative); Urine Ketones Negative (Negative); Urine Nitrite Negative (Negative); Urine Protein Negative (Negative); Urine Specific Gravity 1.008 (1.010-1.030); Urine Urobilinogen Negative (Negative)
[2019-11-28 22:42] LABS: ABS Basophils 0.1 10^3/ul (0-0.2); ABS Eosinophils 0.1 10^3/ul (0-0.6); ABS Lymphocytes 2.4 10^3/ul (1.0-4.8); ABS Monocytes 0.7 10^3/ul (0-0.8); ABS Neutrophils 6.6 10^3/ul (1.5-7.7); Eosinophil % 0.8 %; Hematocrit 45 % (42-52); Hemoglobin 16.1 g/dL (14.0-18.0); Lymphocyte % 24.1 %; Mean Corpuscular HGB Conc 35 g/dL (31-36); Mean Corpuscular Hemoglobin 33 pg (27-31); Mean Corpuscular Volume 93 fL (80-94); Platelet Count 208 10^3/uL (150-450); Red Blood Count 4.87 10^6 /uL (4.18-5.48); Red Cell Distribution Width 13 % (10-15); White Blood Count 9.8 10^3/uL (3.5-10.8)
[2019-11-28] MEDS ORDERED: LORazepam TAB(*) 1 MG PO ONE (22:51)
[2019-11-28 22:54] LABS: Urine Benzodiazepine Screen None Detected (None Detect); Urine Opiates Screen None Detected (None Detect)
[2019-11-28 22:58] LABS: ALT 21 U/L (7-52); AST 19 U/L (13-39); Albumin 4.6 g/dL (3.2-5.2); Albumin/Globulin Ratio 1.9 (1-3); Alkaline Phosphatase 62 U/L (34-104); Anion Gap 6 mmol/L (2-11); BUN/Creatinine Ratio 10.5 (8-20); Blood Urea Nitrogen 13 mg/dL (6-24); CO2 Carbon Dioxide 27 mmol/L (22-32); Calcium 9.6 mg/dL (8.6-10.3); Chloride 104 mmol/L (101-111); EGFR African American 83.4 (>60); EGFR Non-African American 68.9 (>60); Globulin 2.4 g/dL (2-4); Glucose 123 mg/dL (70-100); Potassium 3.9 mmol/L (3.5-5.0); Sodium 137 mmol/L (135-145)
[2019-11-28 23:16] LABS: Acetaminophen < 15 mcg/mL; Alcohol < 10 mg/dL (<10); Salicylate < 2.50 mg/dL (<30)
[2019-11-28 23:31] LABS: TSH (Thyroid Stimulating Horm) 1.54 mcIU/mL (0.34-5.60)
[2019-11-29 01:11] VITALS: BP 143/91
== END 2019-11-29 01:10 | disposition home or self-care (01) ==
LOC: ED 21:17
DX: F19.10 Other psychoactive substance abuse, uncomplicated (principal); R00.2 Palpitations; F17.210 Nicotine dependence, cigarettes, uncomplicated
CPT/HCPCS: 36415; 80053; 80307; 80320; 80329; 81003; 84443; 85025; 99283; A9270-GY; G0480

== ENCOUNTER 2019-12-15 11:38 | Emergency (ER) | payer OTHER ==
--- OUTSIDE RECORDS SUMMARY | 2019-12-15 11:44 | XMS REPORT ---
:1990 Author Organization [facility] Care Team Providers Name Role Phone Rg Jeong Primary Care Physician Unavailable Allergies, Adverse Reactions, Alerts Allergy Code CodeSystem Reaction Severity Criticality Status Start Substance Date Moderate Medications Medication Medication Medication Start Stop Route Dose Status Fill Code CodeSystem Date Date Instructions RxNorm Problems Problem Name Code CodeSystem Alternate Alternate Start End Status Narrative Code CodeSystem Date Date Bipolar 80718758 SNOMED-CT Active disorder, in 05-01 partial remission, most recent episode manic Post-traumat 37300005 SNOMED-CT Active ic stress 05-01 disorder, unspecified Cocaine 21846530 SNOMED-CT Active dependence, 05-01 in remission Alcohol 51999765 SNOMED-CT Active dependence, 05-01 in remission Relevant diagnostic tests/laboratory data Narrative No Information Procedures Procedure Code CodeSystem Target Date of Status Service Device Device Device Name Site Procedure Delivery Code Name UID Location SNOMED-CT () 2019-07-[address], [id number] SNOMED-CT () 2019-08-[address], [id number] SNOMED-CT () 2019-08-[address], [id number] SNOMED-CT () 2019-05-[address], [id number] [id number] Encounters/Encounter Diagnoses Encounter Encounter Diagnosis Diagnosis Diagnosis Date of Service Name Code Code Name CodeSystem Diagnosis Delivery Location Non-Billable 32683 [id number] Bipolar SNOMED-CT 2019-09-08 Behavioral disorder, in [facility] partial [facility] , , remission, , most recent episode manic Vital Signs No Information Social History Element Description Description Start End Code CodeSystem AdditionalInfo Date Date SexAssignedAtBirth Male 0 M AdministrativeGender 05-08 Hospital Discharge Instructions Reason For Referral Medical Equipment FDA Assessments
--- OUTSIDE RECORDS SUMMARY | 2019-12-15 11:44 | XMS REPORT | Continuity of Care Document ---
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 Problems Description No Information Available Social [...] Mass Index) 27.3 kg/m2 Results Test Acquired Date Facility Test Result H/L Range Note Urinalysis Profile 11/28/2019 [facility] Urine Color Yellow [address] [place], [place] [id number] [phone] Urine Appearance Clear Urine Specific Bolton 1.008 Low 1.010-1.030 Urine pH 5.0 Normal 5-9 Urine Urobilinogen Negative Negative Urine Ketones Negative Negative Urine Protein Negative Negative Urine Leukocytes Negative Negative Urine Blood Negative Negative Urine Nitrite Negative Negative Urine Bilirubin Negative Negative Urine Glucose Negative Negative CBC Auto 11/28/2019 [facility] White Blood 9.8 10^3/uL Normal 3.5-10.[address] [place] [address] [phone] Red Blood Count 4.87 10^6/uL Normal 4.18-5.48 Hemoglobin 16.1 g/dL Normal 14.0-18.0 Hematocrit 45 % Normal 42-52 Mean Corpuscular Volume 93 fL Normal 80-94 Mean Corpuscular Hemoglobin 33 pg High 27-31 Mean Corpuscular HGB Conc 35 g/dL Normal 31-36 Red Cell Distribution Width 13 % Normal 10-15 Platelet Count 208 10^3/uL Normal 150-450 Mean Platelet Volume 10.0 fL Normal 7.4-10.4 Abs Neutrophils 6.6 10^3/uL Normal 1.5-7.7 Abs Lymphocytes 2.4 10^3/uL Normal 1.0-4.8 Abs Monocytes 0.7 10^3/uL Normal 0-0.8 Abs Eosinophils 0.1 10^3/uL Normal 0-0.6 Abs Basophils 0.1 10^3/uL Normal 0-0.2 Abs Nucleated RBC 0.0 10^3/uL Granulocyte % 66.9 % Lymphocyte % 24.1 % Monocyte % 7.4 % Eosinophil % 0.8 % Basophil % 0.8 % Nucleated Red Blood Cells % 0.0 Urine Drug 11/28/2019 [facility] Urine None Detected None Detect SCR ED & [address] Amp[facility] [place] [address] Screen [phone] Urine Barbiturates Screen None Detected None Detect Urine Benzodiazepine Screen None Detected None Detect Urine Cannabinoids Screen Presumptive Posi <SEE NOTE> Abnormal None Detect 1 Urine Cocaine Screen Presumptive Posi <SEE NOTE> Abnormal None Detect 2 Urine Opiates Screen None Detected None Detect Urine Phencyclidine Screen None Detected None Detect 3 Comp Metabolic 11/28/2019 [facility] Sodium 137 mmol/L Normal 135-[address] [place], [place] [address] [phone] Potassium 3.9 mmol/L Normal 3.5-5.0 Chloride 104 mmol/L Normal 101-111 Co2 Carbon Dioxide 27 mmol/L Normal 22-32 Anion Gap 6 mmol/L Normal 2-11 Glucose 123 mg/dL High 70-100 Blood Urea Nitrogen 13 mg/dL Normal 6-24 Creatinine 1.24 mg/dL High 0.67-1.17 BUN/Creatinine Ratio 10.5 Normal 8-20 Calcium 9.6 mg/dL Normal 8.6-10.3 Total Protein 7.0 g/dL Normal 6.4-8.9 Albumin 4.6 g/dL Normal 3.2-5.2 Globulin 2.4 g/dL Normal 2-4 Albumin/Globulin Ratio 1.9 Normal 1-3 Total Bilirubin 0.60 mg/dL Normal 0.2-1.0 Alkaline Phosphatase 62 U/L Normal 34-104 Alt 21 U/L Normal 7-52 Ast 19 U/L Normal 13-39 Egfr Non- 68.9 >60 Egfr 83.4 >60 4 Laboratory test 11/28/2019 [facility] Acetaminophen < 15 g/mL 5 finding [address] [place] [address] [phone] Alcohol < 10 mg/dL Normal <10 Salicylate < 2.50 mg/dL <30 TSH (Thyroid Stim Horm) 1.54 mcIU/mL Normal 0.34-5.60 Laboratory 11/20/2019 [facility] D Dimer < 200 Normal Less 6 test finding [address] [facility] Quantitative ng/mL Than [address] [place] [address] [phone] Troponin-I (TnI) 0.00 ng/mL <0.03 7 CBC No Diff 11/19/2019 [facility] White Blood 11.9 10^3/uL High 3.5-10.8 [address] [facility] [place] [place] [address] [phone] Red Blood Count 5.41 10^6/uL Normal 4.18-5.48 Hemoglobin 17.7 g/dL Normal 14.0-18.0 Hematocrit 51 % Normal 42-52 Mean Corpuscular Volume 95 fL High 80-94 Mean Corpuscular Hemoglobin 33 pg High 27-31 Mean Corpuscular HGB Conc 35 g/dL Normal 31-36 Red Cell Distribution Width 13 % Normal 10-15 Platelet Count 196 10^3/uL Normal 150-450 Mean Platelet Volume 10.7 fL High 7.4-10.4 Basic Metabolic 11/19/2019 [facility] Sodium 140 mmol/L Normal 135-145 Panel [address] [place] [address] [phone] Potassium 4.2 mmol/L Normal 3.5-5.0 Chloride 102 mmol/L Normal 101-111 Co2 Carbon Dioxide 27 mmol/L Normal 22-32 Anion Gap 11 mmol/L Normal 2-11 Glucose 81 mg/dL Normal 70-100 Blood Urea Nitrogen 19 mg/dL Normal 6-24 Creatinine 1.34 mg/dL High 0.67-1.17 BUN/Creatinine Ratio 14.2 Normal 8-20 Calcium 10.2 mg/dL Normal 8.6-10.3 Egfr Non- 63.0 >60 Egfr 76.3 >60 8 HIV 1&2 p24 11/19/2019 [facility] HIV 4th Nonreactive Nonreactive Screen [email or web address] [address] [phone] Laboratory 11/19/2019 [facility] Syphillis Igg Negative Negative test finding [address] [email or web address] W/[place] [address] [phone] GC/Chlamydia 11/19/2019 [facility] GCCHL (SEE NOTE) [address] [facility] [employer] [facility] [place] [address] [phone] Chlamydia trachomatis Nusrat Negative Negative Neisseria gonorrhoeae (GC) Nusrat Negative Negative Hepatitis C Antibody 11/19/2019 [facility] HCV Index 0.01 s/c [address] [place] [address] [phone] Hepatitis C Antibody Negative Negative 1 Presumptive Positive Presumptive positive results are unconfirmed. 2 Presumptive Positive Presumptive positive results are unconfirmed. 3 The urine specimen was tested at the listed cutoffs: Drug class test level (ng/mL) Amphetamines 500 Barbiturates 200 Benzodiazepine metabolites 200 Cocaine metabolites 150 Cannabinoids 50 Opiates 300 Pcp 25 Specimen was received without chain of custody. Results should be used for medical purposes only. 4 Because ethnic data is not always readily [...] 15-29 5 Kidney failure <15 (or dialysis) 5 Therapeutic concentration: <50 ug/mL Toxic concentration: >120 ug/mL 6 Please note: The following may produce a false positive D Dimer test: - Rheumatoid factor greater than 60 IU/ml - Plasma hemoglobin greater than 0.05 gm/dl - Bilirubin greater than 50 mg/dl - Lipids greater than 1000 mg/dl - FDP greater than 20 ug/ml 7 Troponin-I testing on Plasma Separator Tubes (PST) has a known false positive rate of 0.20-0.40%. All positive troponins reflex immediately to secondary confirmatory testing. Using the [employer] 800 Access Immunoassay systems, the 99th percentile upper reference limit was demonstrated to be < 0.03 ng/mL. 8 Because ethnic data is not always readily [...] 15-29 5 Kidney failure <15 (or dialysis) 9 As with all diagnostic procedures, the laboratory [...] infections with a predominantly sexual mode of transmissionComments:Labs reviewedNo need for treatment at this timeL70.8 Other acneReferral:Srini Mendez MD, Dermatology Functional Status Description No Information Available Mental Status Description No Information Available Referrals Refer to Reason for Referral Status Appt Date Srini Mendez MD Sent [address] [place] [address] [phone]
[2019-12-15 11:58] VITALS: BP 151/83
--- NOTE | 2019-12-15 12:17 | UC ---
Skin Complaint HPI - HPI Summary HPI Summary: PATIENT ARRIVES COMPLAINING OF SEVERAL WEEKS OF A TENDER SKIN LESION IN HIS LEFT GROIN. THINKS THERE MIGHT BE A THORN EMBEDDED. NO FEVER. NO DRAINAGE. - History of Current Complaint Chief Complaint: UCSkin Time Seen by Provider: 12/15/19 11:51 Stated Complaint: PAIN IN SIDE Hx Obtained From: Patient Onset/Duration: Gradual Onset, Lasting Weeks, Still Present Timing: Constant Onset Severity: Moderate Current Severity: Moderate Pain Intensity: 9 Pain Scale Used: 0-10 Numeric Location: Discrete - LEFT GROIN Character: Pain, Redness, Raised Aggravating Factor(s): Touch Alleviating Factor(s): Nothing - Allergy/Home Medications Allergies/Adverse Reactions: Allergies Allergy/AdvReac Type Severity Reaction Status Date / Time No Known Allergies Allergy Verified 11/28/19 23:13 Home Medications: Home Medications Mupirocin 2% OINT* [Bactroban 2 % Oint*] 1 applic TOPICAL BID #1 tube 12/15/19 [ Rx] Sulfamethox/Trimethoprim DS* [Bactrim DS 800/160 TAB*] 1 tab PO BID #20 tab [Rx] PMH/Surg Hx/FS Hx/Imm Hx - Additional Past Medical History Additional PMH: PATIENT DENIES ANY CHRONIC MEDICAL CONDITIONS Other History Of: Negative For: Anticoagulant Therapy - Surgical History Surgical History: None Surgery Procedure, Year, and Place: none - Family History Known Family History: Positive: Diabetes Negative: Hypertension - Social History Alcohol Use: None Alcohol Amount: Tonight Pt reports having 2 shots and one beer but doesn't typically drink Substance Use Type: Marijuana Substance Use Comment - Amount & Last Used: not for past couple of day Smoking Status (MU): Light Every Day Tobacco Smoker Household Exposure Type: Cigarettes Review of Systems All Other Systems Reviewed And Are Negative: Yes Constitutional: Positive: Negative Skin: Positive: Other - TENDER LUMP LEFT GROING Respiratory: Positive: Negative Cardiovascular: Positive: Negative Gastrointestinal: Positive: Negative Physical Exam Triage Information Reviewed: Yes Appearance: Well-Nourished, Pain Distress - MODERATE Vital Signs: Initial Vital Signs Temp 99.2 F 12/15/19 11:44 Pulse 99 12/15/19 11:44 Resp 18 12/15/19 11:44 BP 151/83 12/15/19 11:44 Pulse Ox 100 12/15/19 11:44 Vital Signs Reviewed: Yes Eyes: Positive: Conjunctiva Clear ENT: Positive: Hearing grossly normal Neck: Positive: Supple Respiratory: Positive: No respiratory distress, No accessory muscle use Cardiovascular: Positive: Pulses Normal Abdomen Description: Positive: Soft Musculoskeletal: Positive: No Edema Neurological: Positive: Alert Psychological: Positive: Age Appropriate Behavior Skin: Positive: Other - 2.5CM X 1CM AREA OF INDURATION AND TENDERNESS WITH SLIGHT ERYTHEMA AND SCATTERED INFLAMED HAIR FOLLICLES LEFT GROIN. NO LYMPHADENOPATHY Course/Dx - Course Course Of Treatment: PATIENT'S PRESENTATION IS CONSISTENT WITH FOLLICULITIS OF HIS LEFT GROIN THAT MAY BE DEVELOPING INTO AN EARLY ABSCESS/CELLULITIS. WILL COVER WITH BACTROBAN TOPICAL OINTMENT AND BACTRIM ORALLY. ADVISED HOT COMPRESSES SEVERAL TIMES DAILY. OTC MEDICATIONS NEEDED FOR DISCOMFORT. GIVEN PATIENT'S OVERWHELMING CONCERN THAT THERE WAS A FOREIGN BODY EMBEDDED IN HIS SKIN ULTRASOUND WAS ORDERED. NO FOREIGN BODY IDENTIFIED. DURING THE ENCOUNTER PATIENT SEEMED UPSET OUT OF PROPORTION TO HIS MEDICAL CONDITION. BASED ON HIS PREVIOUS VISIT HISTORY I'M CONCERNED THAT HE HAS UNDERLYING UNDIAGNOSED PSYCHIATRIC CONDITION HOWEVER HE DOES NOT MEET CRITERIA FOR INVOLUNTARY TRANSFER TO THE EMERGENCY ROOM. PT IS ALERT, ORIENTED AND COHERENT. DENIES SUICIDAL OR HOMICIDAL IDEATIONS. NO INDICATION THAT HE IS A THREAT TO HIMSELF OR OTHERS. - Diagnoses Provider Diagnosis: Folliculitis, Cellulitis Discharge ED - Sign-Out/Discharge Documenting (check all that apply): Patient Departure All imaging exams completed and their final reports reviewed: Yes - Discharge Plan Condition: Stable Disposition: HOME Prescriptions: Mupirocin 2% OINT* [Bactroban 2 % Oint*] 1 applic TOPICAL BID #1 tube Sulfamethox/Trimethoprim DS* [Bactrim DS 800/160 TAB*] 1 tab PO BID #20 tab Patient Education Materials: Cellulitis (ED), Folliculitis (ED) Referrals: Comfort Mclain MD [Primary Care Provider] - 1 Week Additional Instructions: Ultrasound today showed soft tissue swelling but no fluid collection or abscess is seen. No foreign body is noted. Your presentation is consistent with a folliculitis/skin infection. Take the antibiotics twice daily for the full 10 days. Apply the topical bactroban antibiotic ointment twice daily. Do not shave the area until the infection has fully resolved. Avoid all trauma to the area. Apply warm/hot compresses 3-4 times daily for 15-20 minutes each time. Follow-up with your primary care provider this week for re-evaluation. - Billing Disposition and Condition Condition: STABLE Disposition: Home
--- NOTE | 2019-12-16 07:29 | UC ---
- Progress Note Progress Note: Patient Name: JAVAN MCLAIN Medical Record#: [id number] Ordering Physician: Jeana Shoemaker MD Acct.#: [id number] : 1990 Age: 29 Sex: M Location: [facility] Exam Date: 12/15/19 1214 ADM Status: REG ER Order Information: US SOFT TISSUE LIMITED EXT-LT Accession Number: [id number] CPT: 85400 INDICATION: Abscess left groin evaluate for foreign body. COMPARISON: There are no relevant prior studies available for comparison. TECHNIQUE: Multiple real-time images of the left inguinal area with attention to the patient's palpable abnormality were obtained. FINDINGS: There is soft tissue swelling in the left inguinal region with increased vascularity. No fluid collection or abscess is seen. No foreign body is noted. IMPRESSION: NO EVIDENCE FOR ABSCESS. <Electronically signed by Vince Barajas MD in OV> 12/15/19 1255 Dictated By: Vince Barajas MD Dictated Date/Time: 12/15/19 1251 Transcribed Date/Time: 12/15/19 1251 Copy to: CC:Jeana Shoemaker MD; Comfort Mclain MD [facility] Imaging [facility] Urgent [facility] [address] [place] [address] ph ([phone]) ph ([phone]) ph ([phone]) This report is only to be considered final once signed by the Provider(s) as displayed in the "<Electronically Signed by >" field (s). Absence of a signature indicates the report is in a draft status and still needs to be finalized. In the event this document was created by someone other than the signing Provider, the individual initiating the document will be listed in the "Entered by:" or "Dictated by:" bolden. 1 of 1 Course/Dx - Diagnoses Provider Diagnoses: Folliculitis, Cellulitis Discharge ED - Sign-Out/Discharge Documenting (check all that apply): Post-Discharge Follow Up All imaging exams completed and their final reports reviewed: Yes - Discharge Plan Condition: Stable Disposition: HOME Prescriptions: Mupirocin 2% OINT* [Bactroban 2 % Oint*] 1 applic TOPICAL BID #1 tube Sulfamethox/Trimethoprim DS* [Bactrim DS 800/160 TAB*] 1 tab PO BID #20 tab Patient Education Materials: Cellulitis (ED), Folliculitis (ED) Referrals: Comfort Mclain MD [Primary Care Provider] - 1 Week Additional Instructions: Ultrasound today showed soft tissue swelling but no fluid collection or abscess is seen. No foreign body is noted. Your presentation is consistent with a folliculitis/skin infection. Take the antibiotics twice daily for the full 10 days. Apply the topical bactroban antibiotic ointment twice daily. Do not shave the area until the infection has fully resolved. Avoid all trauma to the area. Apply warm/hot compresses 3-4 times daily for 15-20 minutes each time. Follow-up with your primary care provider this week for re-evaluation. - Billing Disposition and Condition Condition: STABLE Disposition: Home
== END 2019-12-15 13:30 | disposition home or self-care (01) ==
LOC: UCEAST 11:38
DX: L02.214 Cutaneous abscess of groin (principal)
CPT/HCPCS: 99212; G0463